=== PATIENT | male | born 1935 | race Caucasian/White ===

== ENCOUNTER 2017-07-02 12:32 | Emergency (ER) | payer MEDICARE ==
[2017-07-02 16:24] LABS: BASOPHIL % 0.3 % (0-2); PLATELET COUNT 259 x10^3mcL (130-400)
[2017-07-02 16:25] LABS: RED CELL DISTRIBUTION WIDTH 16.1 % (11.5-14.5)
[2017-07-02 16:35] LABS: CALCIUM 8.3 mg/dL (8.5-10.1); CARBON DIOXIDE 27.7 mmol/L (21-32); CHLORIDE SERUM 103 mmol/L (98-107); CREATININE SERUM 1.4 mg/dL (0.7-1.3); GLUCOSE SERUM 114 mg/dL (74-106); POTASSIUM SERUM 3.9 mmol/L (3.5-5.1); SODIUM SERUM 138 mmol/L (136-145)
[2017-07-02 16:40] LABS: ALBUMIN 3.6 g/dL (3.4-5.0); ALKALINE PHOSPHATASE 93 U/L (46-116); ALT/SGPT 25 U/L (16-63); AST/SGOT 17 U/L (15-37); BILIRUBIN TOTAL 0.6 mg/dL (0.20-1.00); TOTAL PROTEIN, SERUM 7.4 g/dL (6.4-8.2)
[2017-07-02 17:00] LABS: microscopic required? YES; urine erythrocyte 3+ (NEGATIVE)
[2017-07-02 19:01] VITALS: BP 152/84
== END 2017-07-02 19:02 | disposition home or self-care (01) ==
LOC: ED 12:32
PROVIDERS: Emergency Medicine
DX: N39.0 Urinary tract infection, site not specified (principal); I10 Essential (primary) hypertension; Z88.0 Allergy status to penicillin
CPT/HCPCS: 36415

== ENCOUNTER 2019-01-25 13:23 | Inpatient (IN) | payer BC ==
[~2019-01-25] VITALS: Ht 170.2 cm; Wt 93.0 kg
[2019-01-25 13:29] VITALS: Ht 170.2 cm; Wt 93.0 kg
--- NOTE | 2019-01-25 13:54 | NUR ---
PT BIB FROM HOME, ASSISTED TO BED. PER , PT HAS HAD INCREASED GENERALIZED WEAKNESS AND FEVER/CHILLS NOTED TODAY WITH INCONTINENCE OF STOOL. PT WAS SEEN EARLIER FOR A F/C CHANGE AND IS NOW HAVING BLOODY DRAINAGE NOTED IN F/C. PT ALSO NOTED WITH SWELLING TO SCROTUM/PENIS. PT WITH HX OF ENLARGED PROSTATE. PT NOTED TO BE HOT TO TOUCH WITH DRY FLAKY SKIN. PT NOTED TO BE LETHARGIC, OPENS EYES TO TOUCH/TACTILE STIMULI AND ANSWERS QUESTIONS WITH SLOW SPEECH. AT BEDSIDE ASSISTING WITH CARE/QUESTIONS.
[2019-01-25 14:26] LABS: BASOPHIL % 0.2 % (0-2); PLATELET COUNT 258 x10^3mcL (130-400)
[2019-01-25 14:28] LABS: RED CELL DISTRIBUTION WIDTH 19.1 % (11.5-14.5)
--- NOTE | 2019-01-25 14:52 | NUR ---
CRITICAL LACTIC ACID 5.1, DR KRUEGER INFORMED.
[2019-01-25 14:53] LABS: CARBON DIOXIDE 18.1 mmol/L (21-32); CHLORIDE SERUM 100 mmol/L (98-107); GLUCOSE SERUM 128 mg/dL (74-106); POTASSIUM SERUM 3.5 mmol/L (3.5-5.1); SODIUM SERUM 137 mmol/L (136-145)
[2019-01-25 14:58] LABS: ALKALINE PHOSPHATASE 91 U/L (46-116); ALT/SGPT 30 U/L (16-63); AST/SGOT 23 U/L (15-37); HDL CHOLESTEROL 36 mg/dL (40-60); TOTAL PROTEIN, SERUM 7.3 g/dL (6.4-8.2)
[2019-01-25 15:02] LABS: ALBUMIN 3.1 g/dL (3.4-5.0); CHOLESTEROL 98 mg/dL (<200)
--- NOTE | 2019-01-25 15:35 | NUR ---
IRRIGATED F/C WITH NS PER DR KRUEGER'S ORDER.
--- NOTE | 2019-01-25 16:07 | NUR ---
PT RESTING IN BED WITH EYES CLOSED WITH NO SIGNS OF DISTRESS AT THIS TIME.
--- NOTE | 2019-01-25 17:09 | NUR ---
PT RESTING IN BED WITH BREATHS EVEN AND UNLABORED. NO SIGNS OF DISTRESS AT THIS TIME.
--- NOTE | 2019-01-25 17:34 | NUR ---
SPOKE WITH DR BENJAMIN REGARDING PT.
--- NOTE | 2019-01-25 17:53 | NUR ---
REPORT GIVEN TO MERRITT CANDELARIO.
--- NOTE | 2019-01-25 17:58 | NUR ---
REPORT TAKEN FROM SUMAYA IN THE ER, PT ROOM PREP COMPLETED, PT ARRIVAL PENDING.
--- NOTE | 2019-01-25 18:05 | NUR ---
RECEIVED PT FROM ER, PT ADMIT FOR SEPSIS, PT IS A/O X3, FORGETFUL. LUNG SOUND CLEAR BILATERAL, NO COUGH, NO SOB, PT IS ON TELE 1, STA, DENY ANY CHEST PAIN OR DISCOMFORT, BOWEL LEIF ND PRESENT ALL 4 QUADRANTS, NO DISTENTION, NO TENDER. PEDAL PULSE PRESENT BOTH FEET, NO EDEMA, IV AT RIGHT AC, NO LEAKING, NO INFITLRATIN. THERE IS BLANCHABLE ERYTHEMA AT SACRAL AREA. AND DRY SCAB AT LEFT FA, BUI CATH IN PLACE, THERE IS VERY BLOODY URINE AT BAG AND ALSO TIP OF URETHRA, ALL ADLS ASSIST, ALL NEED MET, CALL LIGHT IN REACH, WILL CONTINUE TO MONITOR.
[2019-01-25 19:04] VITALS: BP 127/50
--- NOTE | 2019-01-25 19:30 | NUR ---
PT IS A/O x3 AND FORGETFUL. PT IS SLOW TO ANSWER QUESTIONS AND FUMBLE OVER QUESTIONS AND NEEDS. TELE #1, ST. DENIES ANY CHEST PAIN OR PRESSURE. PULSES ARE PRESENT. NO EDEMA NOTED. LUNGS CLEAR IN ALL FEILDS. ON RA, DENIES ANY SOB. EQUAL CHEST RISE AND FALL. NO SIGN OF RESP DISTRESS NOTED. BOWEL SOUNDS PRESENT x4. SLIGHT SCOTAL EDEMA NOTED AND SLIGHT BLOOD NOTED ON THE HEAD OF THE PENIS. BUI BAG BELOW THE BLADDER WITH NO DEPENDENT LOOP. BLOODY URINE NOTED ON TUBING, BAG IS EMPTY AT THIS TIME. PT STATED THIS IS A NEW FIND AND THATS WHY HE CAME TO THE ED. DENIES ANY PAIN AT THIS TIME. IV ON RAC INTACT AND PATENT. BED IS AT LOWEST SETTING. CALL LIGHT WITHIN REACH. WILL CONTINUE TO MONTIOR.
[2019-01-25 21:10] VITALS: BP 110/64
--- NOTE | 2019-01-26 01:04 | NUR ---
M[place] RED URINE NOTED IN BUI BAG NOTED. CHARGE NURSE WAS MADE AWARE. URINE SAMPLE COLLECTED AND SENT TO LAB BY MOE. PT DENIES ANY DIAS OR DIZZINESS. WILL CONTINUE TO ANGEL.
--- NOTE | 2019-01-26 01:33 | NUR ---
MD MARTIN WAS MADE AWARE OF PT BLOODY URINE NOTED ON BUI. NO NEW ORDERS AT THIS TIME. MD TO SEE PT EARLY IN THE MORNING. WILL MONITOR PT.
[2019-01-26 02:24] LABS: microscopic required? YES; urine erythrocyte 3+ (NEGATIVE)
[2019-01-26 04:52] VITALS: BP 98/62
[2019-01-26 04:58] VITALS: BP 118/63
[2019-01-26 06:11] LABS: PLATELET COUNT 178 x10^3mcL (130-400)
--- NOTE | 2019-01-26 06:15 | NUR ---
PT IS RESTING IN BED. DENIES ANY PAIN OR DISTRESS NOTED. BLLODY URINE NOTED IN CATH BAG. PT DENIES ANY DIZZINESS OR SOB. PT ABLE TO FOLLOW COMMANDS. NO CHANGES IN MENTAL STATUS. BUI CARE WAS PROVIDED. BED IS AT LOWEST SETTING. CALL LIGHT WITHIN REACH. WILL ENDORSE TO AM SALAZAR.
[2019-01-26 06:29] LABS: CALCIUM 7.4 mg/dL (8.5-10.1); CARBON DIOXIDE 22.6 mmol/L (21-32); CHLORIDE SERUM 104 mmol/L (98-107); CREATININE SERUM 1.5 mg/dL (0.7-1.3); GLUCOSE SERUM 115 mg/dL (74-106); POTASSIUM SERUM 4.3 mmol/L (3.5-5.1); SODIUM SERUM 137 mmol/L (136-145)
[2019-01-26 06:31] LABS: BASOPHIL % 0 % (0-2); RED CELL DISTRIBUTION WIDTH 19.6 % (11.5-14.5)
--- NOTE | 2019-01-26 08:35 | NUR ---
DURING REGULAR BREAKFAST MEAL, PATIENT FEEDING ASSISTANCE PROVIDED. DELAY IN SWALLOWING OBSERVED, PATIENT ADMITS TO HAVING DIFFICULTY CHEWING AND SWALLOWING SOLID FOOD AT TIMES. WILL NOTIFY DR MARTIN.
[2019-01-26 09:06] VITALS: BP 118/61
--- NOTE | 2019-01-26 11:00 | NUR ---
PHYSICAL THERAPISTS WERE AT BEDSIDE TO EVALUATE PATIENT. SIT TO STAND W/ BELT AND FWW. SLOW TO RESPOND AND UNSTEADY, MAX ASSIST. AIR MATTRESS PLACED AND ZGAURD APPLIED TO BLANCHABLE REDNESS IN SACRAL AREA. SNF FOR PT RECOMMENDED. WILL NOTIFY DR MARTIN.
--- NOTE | 2019-01-26 12:45 | NUR ---
CRITICAL VALUE RECEIVED BLOOD CULTURE RESULT SHOWS GRAM NEGATIVE RODS X2. PATIENT'S TELE READING SR W/ OCC PAC'S, HR 83. DR MARTIN PAGED.
[2019-01-26 13:16] VITALS: BP 100/54
--- NOTE | 2019-01-26 13:25 | NUR ---
DR MARTIN MADE AWARE VIA PHONE REGARDING PATIENT'S CURRENT MENTAL STATUS A/OX2 CONFUSED AT TIMES, TELE READING OCC PAC'S, BLOOD CULTURE RESULT, PT RECOMMENDATIONS, AND DYSPHAGIA. RECEIVED TELEPHONE READ BACK ORDER FOR ST/SWALLOW EVAL. NO OTHER NEW ORDERS AT THIS TIME.
--- NOTE | 2019-01-26 15:09 | NUR ---
PT WAS SEEN FOR DYSPHAGIA. PT WAS ABLE TO SAFELY SWALLOW PUREE DIET WITH NECTAR THICK LIQUID WITHOUT S/S OF ASPIRATION. PT HAD DIFFICULTY WITH MASTICATION SKILLS AND COUGH FOR THIN LIQUID. RECOMMENDATION PUREE DIET WITH NECTAR THICK LIQUID SMALL BITES AND SIPS ONLY. 1;1 SUPERVISION.
--- NOTE | 2019-01-26 15:10 | NUR ---
SPEECH THERAPIST AT BEDSIDE EVALUATING PATIENT. PATIENT W/ WEAKNESS TO CHEWING AND POCKETING FOOD, ALSO ASPIRATED WHILE DRINKING WATER. RECOMMENDS PUREE DIET W/ NECTAR THICK LIQUIDS. CHARGE NURSE MADE AWARE, DIET ORDER PLACED.
--- NOTE | 2019-01-26 16:18 | NUR ---
SMALL AMOUNT DRAINAGE NOTED COMING FROM PENIS/CATHETER, BLOODY. PATIENT CLEANSED GOWN/LINENS CHANGED. BUI CARE PROVIDED. SWELLING NOTED TO SCROTUM. BLANCHABLE REDNESS TO SACRAL AREA, ZGAURD AND OPTIFOAM APPLIED. PATIENT REPOSITIONED TO COMFORT. PATIENT C/O ABD DISCOMFORT STATES POSSIBLY FROM CONSTIPATION, UNABLE TO RECALL LAST BM. ADMITS TO PASSING GAS. IPG PAGED.
[2019-01-26 17:02] VITALS: BP 99/55
--- NOTE | 2019-01-26 19:27 | NUR ---
SHIFT REASSESSMENT DONE.PATIENT ALERT ORIENTED X 3.NEEDS ANTICIPATED.BREATHING EASY,PNEUMONIA DX.ON ATB.NS INFUSING ORDERED,RAC SITE.TELE 1 SR WITH PAC'S.QUESTIONABLE BOWEL MOVEMENT DATE.NOW ON MIRALAX AND DULCOLAX PER AM REPORT.WILL FOLLOW UP RESULT.REDNESS SACRUM,GOOD SKIN CARE PROVIDED,SCD ORDERED.BUI INTACT WITH MARLENE URINE NOW,DX HX PROSTATE CA.IVF NS ORDERED INFUSING.IV SITE RAC PATENT.TELE 1 SR,PAC'S.WAS GIVEN PAIN PILL EARLIER,PENILE PAIN PER REPORT.CALL LIGHT IN REACH.BED ALARM ON FOR SAFETY.
[2019-01-26 21:06] VITALS: BP 100/58
--- NOTE | 2019-01-26 21:07 | NUR ---
ATB GIVEN SCHEDULED WITH NO INCIDENT. WAS HERE EARLIER VISITING,SUPPORTIVE OF CARE.
--- NOTE | 2019-01-26 22:00 | NUR ---
REPOSITIONED FOR COMFORT,CORRECT BODY ALIGNMENT MAINTAINED.
--- NOTE | 2019-01-27 01:31 | NUR ---
NEW IVF BAG.IV SITE GOOD.PATIENT HAD BM YESTERDAY.HAD MIRALAX FROM PREVIOUS SHIFT,SWALLOWS WELL.WATER OFFERED DURING THE NIGHT WITH NO INCIDENT.
[2019-01-27 07:09] LABS: CALCIUM 7.7 mg/dL (8.5-10.1); CARBON DIOXIDE 23.8 mmol/L (21-32); CHLORIDE SERUM 105 mmol/L (98-107); CREATININE SERUM 1.3 mg/dL (0.7-1.3); GLUCOSE SERUM 102 mg/dL (74-106); POTASSIUM SERUM 3.9 mmol/L (3.5-5.1); SODIUM SERUM 138 mmol/L (136-145)
[2019-01-27 07:10] LABS: BASOPHIL % 0.1 % (0-2); PLATELET COUNT 136 x10^3mcL (130-400)
--- NOTE | 2019-01-27 07:40 | NUR ---
RECEIVED IN NO ACUTE RESP. DISTRESS. AWAKE AND ALERT. NO C/O PAIN OR DISCOMFORT AT THIS TIME. CALL LIGHT WITHIN REACH. WILL CONTINUE WITH PLAN OF CARE.
[2019-01-27 08:07] VITALS: BP 142/70
--- NOTE | 2019-01-27 09:20 | NUR ---
NOTED WITH MILD SOB WITH EXP. WHEEZES, O2 SATS 94% IN RA. PT PLACED ON 2L N/C. DR. MARTIN NOTIFIED. SEE ORDERS.
[2019-01-27 10:06] VITALS: BP 142/70
[2019-01-27 12:53] VITALS: BP 105/69
--- NOTE | 2019-01-27 15:15 | NUR ---
RESTING IN NO DISTRESS, DENIES PAIN OR DISCOMFORT. CALOL LIGHT WITHIN REACH.
[2019-01-27 16:09] VITALS: BP 101/52
--- NOTE | 2019-01-27 18:52 | NUR ---
REMAINS IN NO ACUTE DISTRESS. AWAKE AND ALERT. NO C/O PAIN OR DISCOMFORT AT THIS TIME. NO CHANGES IN VS. HL PATENT. CALL LIGHT WITHIN REACH. WILL BE ENDORSED TO INCOMING SHIFT.
--- NOTE | 2019-01-27 20:37 | NUR ---
PT CURRENTLY RESTING IN BED, NO ACUTE DISTRESS. A/O X3, FORGETFUL. [place]. TELE #1 SHOWING SINUS RHYTHM, DENIES CHEST PAIN. PULSES PALPABLE IN ALL EXTREMITIES, NO EDEMA NOTED. LUNG SOUNDS DIMINISHED IN BILATERAL BASES, DENIES SOB. O2 VIA NC AT 2L. DRY COUGH NOTED. BOWEL SOUNDS ACTIVE, LAST BM 01/27/19. BUI CATHETER IN PLACE, YELLOW URINE NOTED. SCROTAL EDEMA NOTED. GENERALIZED WEAKNESS. LUE DRY SCABS, STITCH WELDER. SACRAL BLANCHABLE ERRYTHEMA, OPTIFOAM DRESSING CDI. IV PATENT AND INTACT. BED IN LOWEST POSITION, SIDE RAILS UP X2, CALL LIGHT WITHIN REACH. WILL CONTINUE TO MONITOR.
[2019-01-27 20:58] VITALS: BP 102/60
--- NOTE | 2019-01-27 23:52 | NUR ---
PT CURRENTLY RESTING IN BED, NO ACUTE DISTRESS. WILL CONTINUE TO MONITOR.
[2019-01-28 04:25] VITALS: BP 133/74
--- NOTE | 2019-01-28 06:49 | NUR ---
PT SLEPT PERIODICALLY THROUGHOUT NIGHT, NO ACUTE DISTRESS. ALL NEEDS MET AND ATTENDED TO. NO SIGNIFICANT CHANGES. IV PATENT AND INTACT. BED IN LOWEST POSITION, SIDE RAILS UP X2, CALL LIGHT WITHIN REACH. WILL ENDORSE CARE TO ONCOMING NURSE.
--- NOTE | 2019-01-28 07:34 | NUR ---
RECEIVED SLEEPING BUT AROUSABLE. NO RESP. DISTRESS NOTED. PT ALERT AND ORIENTED. VS WNL. IVF INFUSING TO KVO AND SITE CLEAR. NO C/O PAIN OR DISCOMFORT AT THIS TIME. CALL LIGHT WITHIN REACH. WILL CONTINUE WITH PLAN OF CARE.
[2019-01-28 08:35] VITALS: BP 110/61
[2019-01-28 12:53] VITALS: BP 131/67
--- NOTE | 2019-01-28 13:46 | NUR ---
RESTING IN NO DISTRESS, DENIES ANY DISCOMFORT.
--- NOTE | 2019-01-28 16:41 | NUR ---
PHYSICAL THERAPY DAILY NOTES CO-SIGN All documentation done by the Oxyacetylene Burner for 01/28/19 has been reviewed. I agree with the documentation. Reviewed/Co-Signed by: Naveen Lala PT Documentation Done by:LISY REYES PTA
[2019-01-28 16:42] VITALS: BP 139/88
--- NOTE | 2019-01-28 18:53 | NUR ---
REMAINS IN NO ACUTE RESP. DISTRESS. AWAKE AND ALERT. VS WNL. IVF INFUSING WELL AND SITE CLEAR. NO C/O PAIN OR DISCOMFORT AT THIS TIME. CALL LIGHT WITHIN REACH. WILL BE ENDORSED TO INCOMING SHIFT.
--- NOTE | 2019-01-28 20:09 | NUR ---
PT CURRENTLY RESTING IN BED, NO ACUTE DISTRESS. A/O X3, FORGETFUL. TELE #1 SHOWING SINUS RHYTHM, DENIES CHEST PAIN. PULSES PALPABLE IN ALL EXTREMITIES, NO EDEMA NOTED. LUNG SOUNDS DIMINISHED IN BILATERAL BASES, DENIES SOB. O2 VIA NC AT 2L. BOWEL SOUNDS ACTIVE, LAST BM 01/28/19. BUI CATHETER IN PLACE, YELLOW URINE NOTED. GENERALIZED WEAKNESS. LUE DRY SCABS, BUSINESS MACHINE OPERATOR. SACRAL ERRYTHEMA, OPTIFOAM DRESSING CDI. IV PATENT AND INTACT. BED IN LOWEST POSITION, SIDE RAILS UP X2, CALL LIGHT WITHIN REACH. WILL CONTINUE TO MONITOR.
[2019-01-28 20:54] VITALS: BP 151/65
--- NOTE | 2019-01-29 00:03 | NUR ---
PT CURRENTLY RESTING IN BED, NO ACUTE DISTRESS. WILL CONTINUE TO MONITOR.
[2019-01-29 05:06] VITALS: BP 170/86
[2019-01-29 06:34] LABS: BASOPHIL % 0.3 % (0-2); PLATELET COUNT 179 x10^3mcL (130-400)
--- NOTE | 2019-01-29 06:58 | NUR ---
RECIEVED PT FROM TIRE SERVICE TECHNICIAN NURSE. PT RESTING IN BED, AXO3, RESP E/U, CURRENTLY RECEIVING BREATHING TX FROM RT. NO ACUTE DISTRESS NOTED. ON TELE 1 SHOWING NSR, HR: 82. IV TO RAC W/ NO SIGNS OF INFILTRATION, IVF INFUSING WELL. BED IN LOWEST POSITION AND CALL LIGHT WITHIN REACH. WILL CONTINUE TO MONITOR.
[2019-01-29 07:11] LABS: RED CELL DISTRIBUTION WIDTH 18.5 % (11.5-14.5)
[2019-01-29 09:05] VITALS: BP 125/75
[2019-01-29 10:19] VITALS: BP 125/75
--- NOTE | 2019-01-29 11:18 | NUR ---
PT DISCHARGED. REVIEWED VISIT SUMMARY, EDUCATIONAL PACKET AND FOLLOW UP INSTRUCTIONS W/ PT AND PT . PT AOX3, RESP E/U, VS STABLE, C/O OF MILD SHOULDER PAIN BUT TOLERABLE. IV TO RAC REMOVED, CATH INTACT, GAUZE DRESSING APPLIED. BUI CATH IN PLACE, DRAINING YELLOW URINE TO GRAVITY, 500 CC OUT. ESCORTED TO DISCHARGE OFFICE VIA WHEELCHAIR BY MOE BLANK W/ NO ACUTE INCIDENCE.
== END 2019-01-29 11:25 | disposition home or self-care (01) | DRG 871 ==
LOC: ED 13:23 → DU 17:11 → MU 18:05 → DU 18:09
PROVIDERS: Emergency Medicine; Internal Medicine Pulmonary Disease; ADMIT Internal Medicine
DX: A41.9 Sepsis, unspecified organism (principal); N17.0 Acute kidney failure with tubular necrosis; N39.0 Urinary tract infection, site not specified; E87.2 Acidosis; N17.9 Acute kidney failure, unspecified; B96.1 Klebsiella pneumoniae [K. pneumoniae] as the cause of diseases classified elsewhere; I12.9 Hypertensive chronic kidney disease with stage 1 through stage 4 chronic kidney disease, or unspecified chronic kidney disease; N18.9 Chronic kidney disease, unspecified; R31.9 Hematuria, unspecified; I95.9 Hypotension, unspecified
CPT/HCPCS: 92526-GN; 92610-GN; 97110-GP; 97116-GP; 97530-GP; G0378; J1940; J1956; J2185; J2270; J7030; J7620

== ENCOUNTER 2019-03-29 13:57 | Emergency (ER) | payer BC ==
[~2019-03-29] VITALS: Ht 172.7 cm; Wt 86.2 kg
[2019-03-29 14:09] VITALS: Ht 172.7 cm; Wt 86.2 kg
[2019-03-29 17:14] LABS: BASOPHIL % 0.4 % (0-2); PLATELET COUNT 318 x10^3mcL (130-400)
[2019-03-29 17:15] LABS: RED CELL DISTRIBUTION WIDTH 18.4 % (11.5-14.5)
[2019-03-29 17:22] LABS: CALCIUM 8.3 mg/dL (8.5-10.1); CHLORIDE SERUM 102 mmol/L (98-107); CREATININE SERUM 1.3 mg/dL (0.7-1.3); GLUCOSE SERUM 114 mg/dL (74-106); POTASSIUM SERUM 4.4 mmol/L (3.5-5.1); SODIUM SERUM 136 mmol/L (136-145)
[2019-03-29 19:24] VITALS: BP 141/80
== END 2019-03-29 19:24 | disposition home or self-care (01) ==
LOC: ED 13:57
PROVIDERS: Emergency Medicine
DX: N30.90 Cystitis, unspecified without hematuria (principal); N13.9 Obstructive and reflux uropathy, unspecified; K13.0 Diseases of lips; I10 Essential (primary) hypertension; E11.9 Type 2 diabetes mellitus without complications; Z46.6 Encounter for fitting and adjustment of urinary device; Z88.0 Allergy status to penicillin; Z88.2 Allergy status to sulfonamides; Z88.1 Allergy status to other antibiotic agents
CPT/HCPCS: J1940